=== PATIENT | male | born 1990 | race Caucasian/White ===

== ENCOUNTER 2019-09-05 06:21 | Emergency (ER) | payer MEDICAID ==
[~2019-09-05] VITALS: Ht 167.6 cm; Wt 73.0 kg
[2019-09-05] MEDS ORDERED: KETOROLAC 30MG/ML VIAL IM ONE (06:45)
[2019-09-05 08:06] VITALS: BP 120/78
== END 2019-09-05 08:07 | disposition home or self-care (01) ==
LOC: ER 06:21
DX: S90.01XA Contusion of right ankle, initial encounter (principal); S90.31XA Contusion of right foot, initial encounter; W01.0XXA Fall on same level from slipping, tripping and stumbling without subsequent striking against object, initial encounter; Y93.89 Activity, other specified; Y92.89 Other specified places as the place of occurrence of the external cause; Y99.8 Other external cause status
CPT/HCPCS: 73610; 73630; 96372; 99284; J1885